=== PATIENT | female | born 1970 | race Caucasian/White ===

== ENCOUNTER 2016-12-18 00:33 | Emergency (ER) | payer OTHER ==
[~2016-12-18] VITALS: Ht 170.2 cm; Wt 86.8 kg
[~2016-12-18 00:33] MED LIST: ADVIL200 M1 PO; ANASTROZOLE1 MG PO; APRISO0.375 GM PO; ASMANEX HFA13 G1 IH; ASPIR 8181 M1 PO; ASPIRIN81 M2 PO; AUGMENTIN875 MG PO; AZITHROMYCIN500 M1 PO; BALSALAZIDE DI750 MG PO; BENTYL10 MG PO; BREO ELLIPTA 21 EACH IH; CLARITIN10 MG PO; COUMADIN2 MG PO; CREON 241 CAPSULE PO; DAILY VALUE1 EACH PO; DAILY VITAMIN1 EAC8 PO; ELIQUIS5 MG PO; HYDROCHLOROTHIA25 MG PO; LOVENOX100 MG/1 M SC; NASONEX17 GM BOTH NARES; PRAVASTATIN SOD10 MG PO; PRILOSEC40 MG PO; PROCHLORPERAZIN10 MG PO; PROMETHAZINE HC25 M1 PO; TAMOXIFEN CITRA20 MG PO; TYLENOL EXTRA500 MG PO; WARFARIN SODIUM5 MG PO; ZOFRAN4 MG PO; ZYRTEC-D1 TABLE1 PO; [UNRECOGNIZED DRUG - OTHER] IM
[2016-12-18 01:14] LABS: INFLUENZA A VIRAL ANTIGEN NEGATIVE; INFLUENZA B VIRAL ANTIGEN NEGATIVE
[2016-12-18 03:07] LABS: EOSINOPHIL (%) 0 % (0-5); HEMATOCRIT 41.3 % (36.0-46.0); IMMATURE GRANULOCYTE (%) 0.2 % (0.0-0.7); IMMATURE GRANULOCYTE COUNT 0.3 K/uL; MCH 29.2 PG (29.0-34.0); MCHC 33.9 G/DL (30.0-36.0); MEAN PLAT.VOLUME 8.6 uM^3 (9.5-12.4); MONOCYTE (%) 6.4 % (3-12); MONOCYTE COUNT 0.9 K/uL (0-0.8); NEUTROPHIL (%) 86.2 % (45-76); NEUTROPHIL COUNT 11.6 K/uL (1.8-6.4); PLATELET COUNT 195 K/uL (156-360); RBC DIS.WIDTH-CV 12.5 % (11.8-14.6); RBC DIS.WIDTH-SD 38.4 % (39-53); WHITE BLOOD COUNT 13.5 K/uL (4.1-10.2)
[2016-12-18 03:16] LABS: CHLORIDE 99 mEq/L (99-109); POTASSIUM 3.7 mEq/L (3.7-5.4); SODIUM 137 mEq/L (136-147)
[2016-12-18 03:18] LABS: GLUCOSE 126 mg/dL (70-99)
[2016-12-18 03:19] LABS: ANION GAP 11 MEQ/L (2-14)
[2016-12-18 03:20] LABS: TOTAL BILIRUBIN 0.3 mg/dL (0.0-1.0)
[2016-12-18 03:22] LABS: ALKALINE PHOSPHATASE 78 IU/L (3-129); GFR ESTIMATE (CALCULATED) > 59 mL/min/
[2016-12-18 03:23] LABS: UREA NITROGEN (BUN) 7 mg/dL (9-23)
[2016-12-18 03:25] LABS: LIPASE 17 U/L (1.0-51.0)
[2016-12-18] MEDS ORDERED: VENTOLIN HFA18 GM IH (03:59)
[2016-12-18] MEDS ORDERED: TESSALON PERLE100 MG PO (03:59)
[2016-12-18] MEDS ORDERED: LEVAQUIN750 MG PO (03:59)
[2016-12-18 04:53] VITALS: BP 111/68
== END 2016-12-18 05:08 | disposition home or self-care (01) ==
LOC: EME 00:33
PROVIDERS: Emergency Medicine
DX: J18.9 Pneumonia, unspecified organism (principal); M79.1 Myalgia
CPT/HCPCS: 71010; 80053; 81003; 83690; 85025; 87502; 94640; 99281; 99284; J7030

== ENCOUNTER 2017-10-16 09:47 | Emergency (ER) | payer OTHER ==
[~2017-10-16] VITALS: Ht 167.6 cm; Wt 84.6 kg
[~2017-10-16 09:47] MED LIST changes: +ADVAIR 100/501 DISK IH; +ADVAIR 250/501 DISK IH; +ALLEGRA ALLERG180 MG PO; +LEVAQUIN750 MG PO; +TESSALON PERLE100 MG PO; +VENTOLIN HFA18 GM IH
[2017-10-16 10:58] LABS: HEMATOCRIT 38.5 % (36.0-46.0); MCHC 33.5 G/DL (30.0-36.0); MCV 86.5 FL (83-99); MEAN PLAT.VOLUME 8.6 uM^3 (9.5-12.4); PLATELET COUNT 231 K/uL (156-360); RBC DIS.WIDTH-CV 11.9 % (11.8-14.6); RBC DIS.WIDTH-SD 37.6 % (39-53); RED BLOOD COUNT 4.45 M/uL (3.80-5.20); WHITE BLOOD COUNT 8.7 K/uL (4.1-10.2)
[2017-10-16 11:14] LABS: CHLORIDE 99 mEq/L (99-109); POTASSIUM 3.4 mEq/L (3.7-5.4); SODIUM 136 mEq/L (136-147)
[2017-10-16 11:16] LABS: GLUCOSE 162 mg/dL (70-99)
[2017-10-16 11:17] LABS: ANION GAP 10 MEQ/L (2-14)
[2017-10-16 11:18] LABS: TOTAL BILIRUBIN 0.2 mg/dL (0.0-1.0)
[2017-10-16 11:19] LABS: ALKALINE PHOSPHATASE 163 IU/L (3-129)
[2017-10-16 11:20] LABS: GFR ESTIMATE (CALCULATED) > 59 mL/min/
[2017-10-16 11:21] LABS: UREA NITROGEN (BUN) 8 mg/dL (9-23)
[2017-10-16 11:23] LABS: LIPASE 61 U/L (1.0-51.0)
[2017-10-16 12:01] LABS: ADD MIUA? NO; BILIRUBIN NEGATIVE; BLOOD NEGATIVE; COLOR YELLOW ((YELLOW)); GLUCOSE (STRIP) NEGATIVE; KETONES NEGATIVE; LEUKOCYTES NEGATIVE; NITRITE NEGATIVE; PROTEIN (STRIP) NEGATIVE; UCUL ADDED? NO; UROBILINOGEN 0.2 MG/DL (0.2-1.0)
[2017-10-16] MEDS ORDERED: ZOFRAN ODT4 MG PO (13:07)
[2017-10-16] MEDS ORDERED: LEVSIN0.125 MG PO (13:07)
[2017-10-16] MEDS ORDERED: CIPRO500 MG PO (13:07)
[2017-10-16 13:22] VITALS: BP 97/55
== END 2017-10-16 13:23 | disposition home or self-care (01) ==
LOC: EME 09:47
PROVIDERS: Nurse Practitioner Family
DX: K52.9 Noninfective gastroenteritis and colitis, unspecified (principal); K76.0 Fatty (change of) liver, not elsewhere classified; R16.0 Hepatomegaly, not elsewhere classified; K86.89 Other specified diseases of pancreas; Z85.3 Personal history of malignant neoplasm of breast; Z90.10 Acquired absence of unspecified breast and nipple
CPT/HCPCS: 74177; 80053; 81003; 83690; 85027; 99281; 99284; J1885; J7030

== ENCOUNTER 2017-11-03 16:03 | Inpatient (IN) | payer OTHER ==
[~2017-11-03] VITALS: Ht 170.2 cm; Wt 79.2 kg
[~2017-11-03 16:03] MED LIST changes: +CIPRO500 MG PO; +LEVSIN0.125 MG PO; +ZOFRAN ODT4 MG PO
[2017-11-03 18:18] LABS: HEMATOCRIT 37.1 % (36.0-46.0); HEMOGLOBIN 12.1 G/DL (11.9-15.5); MCH 28.5 PG (29.0-34.0); MCHC 32.6 G/DL (30.0-36.0); MCV 87.5 FL (83-99); RBC DIS.WIDTH-CV 12.9 % (11.8-14.6); RBC DIS.WIDTH-SD 40.9 % (39-53); RED BLOOD COUNT 4.24 M/uL (3.80-5.20)
[2017-11-03 18:19] LABS: PLATELET COUNT 301 K/uL (156-360)
[2017-11-03 18:30] LABS: ALBUMIN 3.3 g/dL (3.2-4.8)
[2017-11-03 18:31] LABS: CHLORIDE 94 mEq/L (99-109); POTASSIUM 3.9 mEq/L (3.7-5.4); SODIUM 133 mEq/L (136-147)
[2017-11-03 18:33] LABS: GLUCOSE 118 mg/dL (70-99); TOTAL PROTEIN 7.5 g/dL (6.4-8.3)
[2017-11-03 18:35] LABS: TOTAL BILIRUBIN 0.7 mg/dL (0.0-1.0)
[2017-11-03 18:36] LABS: ALKALINE PHOSPHATASE 74 IU/L (3-129)
[2017-11-03 18:37] LABS: CREATININE 0.7 mg/dL (0.6-1.3); GFR ESTIMATE (CALCULATED) > 59 mL/min/
[2017-11-03 18:38] LABS: AST (GOT) 22 IU/L (2-34); UREA NITROGEN (BUN) 6 mg/dL (9-23)
[2017-11-03 18:39] LABS: ALT (GPT) 23 IU/L (3-49)
[2017-11-03 22:02] VITALS: BP 130/62
[2017-11-03 22:19] LABS: APPEARANCE CLEAR ((CLEAR)); BILIRUBIN NEGATIVE; BLOOD SMALL; COLOR YELLOW ((YELLOW)); GLUCOSE (STRIP) NEGATIVE; KETONES NEGATIVE; LEUKOCYTES NEGATIVE; NITRITE NEGATIVE; PROTEIN (STRIP) NEGATIVE; UROBILINOGEN 0.2 MG/DL (0.2-1.0)
[2017-11-03 22:21] LABS: BACTERIA NONE SEEN /HPF; EPITHELIAL CELLS NONE SEEN /HPF; MUCUS NONE SEEN /LPF; RED BLOOD CELLS 0-5 /HPF (0-5); WHITE BLOOD CELLS 0-5 /HPF (0-5)
[2017-11-03 22:30] LABS: SPECIFIC GRAVITY 1.066 (1.000-1.030)
[2017-11-03 23:18] LABS: C DIFF TOXIN NEGATIVE (NEGATIVE)
[2017-11-03 23:52] LABS: STOOL OCCULT BLD 1ST SPECIMEN NEGATIVE
[2017-11-04 00:05] VITALS: BP 110/57
[2017-11-04 12:00] VITALS: BP 91/55
[2017-11-04 12:14] LABS: HEMATOCRIT 30.8 % (36.0-46.0); MCH 28.3 PG (29.0-34.0); MCHC 32.1 G/DL (30.0-36.0); PLATELET COUNT 273 K/uL (156-360); RBC DIS.WIDTH-CV 12.8 % (11.8-14.6); RBC DIS.WIDTH-SD 40.6 % (39-53); WHITE BLOOD COUNT 7.6 K/uL (4.1-10.2)
[2017-11-04 12:30] LABS: CHLORIDE 98 MEQ/L (99-109); CREATININE 0.5 MG/DL (0.6-1.3); GFR ESTIMATE (CALCULATED) > 59 mL/min/; GLUCOSE 116 mg/dL (70-99); POTASSIUM 3.5 MEQ/L (3.7-5.4); SODIUM 133 MEQ/L (136-147); UREA NITROGEN (BUN) 4 mg/dL (9-23)
[2017-11-04 12:33] LABS: HEMOGLOBIN 9.9 G/DL (11.9-15.5)
[2017-11-04 12:44] LABS: ABS NEUTROPHIL COUNT 5.5; BAND NEUTROPHILS 39.5 % (0-8.0); EOSINOPHIL ABS CT 0.1; EOSINOPHILS 1.7 % (0-5.0); LYMPHOCYTES 12.3 % (15.0-45.0); PLAT.SUFFICIENCY ADEQUATE; SEG.NEUTROPHILS 32.5 % (46.0-76.0)
[2017-11-04 15:58] VITALS: BP 109/52
[2017-11-04 19:30] VITALS: BP 104/53
[2017-11-04 23:08] VITALS: BP 118/60
[2017-11-05 04:23] VITALS: BP 97/55
[2017-11-05 09:05] LABS: HEMATOCRIT 32.9 % (36.0-46.0); HEMOGLOBIN 10.4 G/DL (11.9-15.5); MCHC 31.6 G/DL (30.0-36.0); MCV 88.4 FL (83-99); PLATELET COUNT 299 K/uL (156-360); RBC DIS.WIDTH-CV 12.7 % (11.8-14.6); RED BLOOD COUNT 3.72 M/uL (3.80-5.20); WHITE BLOOD COUNT 7.1 K/uL (4.1-10.2)
[2017-11-05 09:31] LABS: C-REACTIVE PROTEIN > 240.0 MG/L (0-10); CHLORIDE 98 MEQ/L (99-109); CREATININE 0.4 MG/DL (0.6-1.3); GFR ESTIMATE (CALCULATED) > 59 mL/min/; GLUCOSE 155 mg/dL (70-99); POTASSIUM 3.9 MEQ/L (3.7-5.4); SODIUM 135 MEQ/L (136-147); UREA NITROGEN (BUN) 7 mg/dL (9-23)
[2017-11-05 11:42] VITALS: BP 107/63
[2017-11-05 11:57] LABS: ERTH.SED.RATE 92 MM/HR (0-20)
[2017-11-05 19:30] VITALS: BP 100/69
[2017-11-05 23:28] VITALS: BP 110/87
[2017-11-06 03:15] VITALS: BP 103/65
[2017-11-06 08:00] VITALS: BP 110/60
[2017-11-06 08:57] LABS: HEMATOCRIT 31.4 % (36.0-46.0); MCH 28.1 PG (29.0-34.0); MCHC 31.8 G/DL (30.0-36.0); MCV 88.2 FL (83-99); PLATELET COUNT 325 K/uL (156-360); RBC DIS.WIDTH-CV 12.8 % (11.8-14.6); RBC DIS.WIDTH-SD 41.6 % (39-53); RED BLOOD COUNT 3.56 M/uL (3.80-5.20); WHITE BLOOD COUNT 6.1 K/uL (4.1-10.2)
[2017-11-06 09:27] LABS: CHLORIDE 103 MEQ/L (99-109); CREATININE 0.4 MG/DL (0.6-1.3); GFR ESTIMATE (CALCULATED) > 59 mL/min/; GLUCOSE 158 mg/dL (70-99); POTASSIUM 4.5 MEQ/L (3.7-5.4); SODIUM 140 MEQ/L (136-147); UREA NITROGEN (BUN) 9 mg/dL (9-23)
[2017-11-06 11:28] VITALS: BP 118/74
[2017-11-06 16:09] VITALS: BP 105/68
[2017-11-06 19:45] VITALS: BP 119/69
[2017-11-06 23:45] VITALS: BP 128/67
[2017-11-07 03:45] VITALS: BP 118/67
[2017-11-07 08:03] VITALS: BP 136/77
[2017-11-07 11:54] VITALS: BP 127/75
[2017-11-07 15:51] VITALS: BP 141/79
[2017-11-07 19:45] VITALS: BP 140/74
[2017-11-08 00:21] VITALS: BP 137/70
[2017-11-08 04:15] VITALS: BP 124/60
[2017-11-08 09:24] LABS: HEMATOCRIT 33.4 % (36.0-46.0); HEMOGLOBIN 10.9 G/DL (11.9-15.5); MCH 28.7 PG (29.0-34.0); MCHC 32.6 G/DL (30.0-36.0); MCV 87.9 FL (83-99); PLATELET COUNT 314 K/uL (156-360); RBC DIS.WIDTH-CV 12.9 % (11.8-14.6); RBC DIS.WIDTH-SD 40.8 % (39-53); WHITE BLOOD COUNT 6.7 K/uL (4.1-10.2)
[2017-11-08 09:41] LABS: CHLORIDE 102 MEQ/L (99-109); POTASSIUM 4.2 MEQ/L (3.7-5.4); SODIUM 139 MEQ/L (136-147)
[2017-11-08 09:46] LABS: CREATININE 0.5 MG/DL (0.6-1.3); GFR ESTIMATE (CALCULATED) > 59 mL/min/; GLUCOSE 145 mg/dL (70-99); UREA NITROGEN (BUN) 13 mg/dL (9-23)
[2017-11-08] MEDS ORDERED: DICYCLOMINE HCL10 MG PO (10:57)
[2017-11-08] MEDS ORDERED: FLORASTOR250 MG PO (10:57)
[2017-11-08] MEDS ORDERED: PREDNISONE20 MG PO (10:59)
[2017-11-08] MEDS ORDERED: CIPRO500 MG PO (11:00)
[2017-11-08] MEDS ORDERED: FLAGYL500 MG PO (11:00)
[2017-11-08] MEDS ORDERED: BALSALAZIDE DI750 MG PO (11:07)
[2017-11-08 11:40] VITALS: BP 126/74
== END 2017-11-08 13:26 | disposition home or self-care (01) | DRG 386 ==
LOC: EME 16:03 → EDOF 20:20 → ENRESERV 20:23 → 5WEST 21:20
PROVIDERS: Hospitalist; Nurse Practitioner Adult Health; Nurse Practitioner Family; Physician Assistant; Physician Assistant Medical
DX: K51.90 Ulcerative colitis, unspecified, without complications (principal); E87.1 Hypo-osmolality and hyponatremia; E78.2 Mixed hyperlipidemia; E86.0 Dehydration; D64.9 Anemia, unspecified; D64.89 Other specified anemias; E87.6 Hypokalemia; Z85.3 Personal history of malignant neoplasm of breast; Z79.82 Long term (current) use of aspirin; Z92.21 Personal history of antineoplastic chemotherapy; Z83.3 Family history of diabetes mellitus; Z80.3 Family history of malignant neoplasm of breast; Z87.891 Personal history of nicotine dependence; Z92.3 Personal history of irradiation
CPT/HCPCS: 74177; 80048; 80053; 80375 90; 81003; 82272; 83605; 83630; 85025; 85027; 85651; 86140; 87177; 87493; 87502; 99281; 99285; C1753; G0378; J0744; J1170; J1644; J1885; J2930; J7030; J7120; J7512; S0030